=== PATIENT | male | born 1995 | race African-American/Black ===

== ENCOUNTER 2016-04-26 07:34 | Emergency (ER) | payer BC, MEDICAID ==
--- NOTE | 2016-04-26 08:49 | ER Document Report ---
ED Head/Face/Scalp Injury - General Chief Complaint: Fall Stated Complaint: FALL,HEAD PAIN Time seen by provider: 08:44 Mode of Arrival: Ambulatory Information source: Patient Notes: 21-year-old male presents to ED status post fall. He states he fell in the bathroom he was half asleep going to the bathroom. He has pain to the back of his head. He has a small laceration to the scalp. Denies nausea or vomiting. TRAVEL OUTSIDE OF THE [place] IN LAST 30 DAYS: No - HPI Patient complains to provider of: Injury, Laceration, Pain Injury to: Head Location of problem: Head Occurred: This morning Where: Home Timing: Still present Context: Fell, Laceration Loss consciousness: No loss of consciousness Remembers: Injury, Coming to hospital - Related Data Allergies/Adverse Reactions: No Known Allergies Allergy (Verified 04/26/16 07:36) Home Medications: Current Home Medications No Home Medications 04/26/16 [History] Past Medical History - General Information source: Patient - Social History Smoking Status: Never Smoker Cigarette use (# per day): No Chew tobacco use (# tins/day): No Smoking Education Provided: No Frequency of alcohol use: None Drug Abuse: None Occupation: [employer] Lives with: Grandparent(s) Family History: Arthritis, DM, Hyperlipidemia, Hypertension Patient has suicidal ideation: No Patient has homicidal ideation: No - Past Medical History Cardiac Medical History: Reports: None Pulmonary Medical History: Reports: None EENT Medical History: Reports: None Neurological Medical History: Reports: None Endocrine Medical History: Reports: None Renal/ Medical History: Reports: None Malignancy Medical History: Reports None GI Medical History: Reports: None Musculoskeltal Medical History: Reports None Skin Medical History: Reports None Psychiatric Medical History: Reports: None Traumatic Medical History: Reports: None Infectious Medical History: Reports: None Surgical Hx: Negative - Immunizations Immunizations up to date: Yes Hx Diphtheria, Pertussis, Tetanus Vaccination: Yes Review of Systems - Review of Systems Constitutional: No symptoms reported EENT: No symptoms reported Cardiovascular: No symptoms reported Respiratory: No symptoms reported Gastrointestinal: No symptoms reported Genitourinary: No symptoms reported Male Genitourinary: No symptoms reported Musculoskeletal: No symptoms reported Skin: Other - Posterior scalp laceration Hematologic/Lymphatic: No symptoms reported Neurological/Psychological: No symptoms reported -: Yes All other systems reviewed and negative Physical Exam - Vital signs Vitals: Temp Pulse Resp BP Pulse Ox 97.7 F 96 17 149/73 H 100 04/26/16 07:37 04/26/16 07:37 04/26/16 07:37 04/26/16 07:37 04/26/16 07:37 Interpretation: Normal - General General appearance: Appears well, Alert - HEENT Head: Normocephalic, Atraumatic Eyes: Normal Pupils: PERRL Ears: Normal External canal: Normal Tympanic membrane: Normal Sinus: Normal Nasal: Normal Mouth/Lips: Normal Pharynx: Normal Neck: Normal - Respiratory Respiratory status: No respiratory distress Chest status: Nontender Breath sounds: Normal Chest palpation: Normal - Cardiovascular Rhythm: Regular Heart sounds: Normal auscultation Murmur: No - Abdominal Inspection: Normal Distension: No distension Bowel sounds: Normal Tenderness: Nontender Organomegaly: No organomegaly - Back Back: Normal, Nontender - Extremities General upper extremity: Normal inspection, Nontender, Normal color, Normal ROM , Normal temperature General lower extremity: Normal inspection, Nontender, Normal color, Normal ROM , Normal temperature, Normal weight bearing. No: Shavon's sign - Neurological Neuro grossly intact: Yes Cognition: Normal Orientation: AAOx4 Mary Coma Scale Eye Opening: Spontaneous Mary Coma Scale Verbal: Oriented Mary Coma Scale Motor: Obeys Commands Mary Coma Scale Total: 15 Speech: Normal Motor strength normal: LUE, RUE, LLE, RLE Sensory: Normal - Psychological Associated symptoms: Normal affect, Normal mood - Skin Skin Temperature: Warm Skin Moisture: Dry Skin Color: Normal Course - Vital Signs Vital signs: Temp Pulse Resp BP Pulse Ox 97.9 F 64 20 133/67 H 98 04/26/16 09:41 04/26/16 09:41 04/26/16 09:41 04/26/16 09:41 04/26/16 09:41 Procedures - Laceration/Wound Repair Posterior Time completed: 09:29 Wound length (cm): 3 Wound's Depth, Shape: Into muscle Laceration pre-procedure: Sterile PPE donned, Sterile drapes applied, Other - surgical scub Anesthetic type: Other - none Volume Anesthetic (mLs): 0 Irrigated w/ Saline (mLs): 150 Wound Repaired With: Ilia Suture Size/Type: Other - ilia Number of Sutures: 4 - ilia Layer Closure?: No Post-procedure wound care: Other - scalp Complications: No Discharge - Discharge Clinical Impression: Laceration of scalp Qualifiers: Encounter type: initial encounter Qualified Code(s): S01.01XA - Laceration without foreign body of scalp, initial encounter Condition: Stable Disposition: HOME, SELF-CARE Instructions: Care of Stapled Wounds ([facility]), Family Physicians / Practices Additional Instructions: Scalp Laceration A scalp laceration requires little care. Dressings are applied only if severe bleeding or a large flap are present. Usually, once the cut is sutured, you can ignore it. Simply comb the hair over top of it to hide the stitches and go about your usual routine. You can shampoo your hair as needed starting tomorrow. If you need to wear a special hat or protective helmet for work, be careful that it doesn't press on the area. If crusting is bothersome, you can soften the crusts with Polysporin ointment, then shampoo. Infection in a scalp laceration is rare. If any signs of infection occur ( swelling, redness, increasing tenderness, red streaks, tender lumps in the neck on the side of the laceration, or fever), see the doctor immediately. SOAP CLEANSING: Gently wash the wound daily using a mild soap (like Ivory, Phisoderm, Neutrogena). Use warm water, rubbing gently until all debris, ooze, and crusting have been washed from the wound. Allow to dry briefly (about 10 minutes) after cleaning. Repeat this cleansing at least three times a day for the first two days and then once or twice a day. FOLLOW-UP CARE: Please return in __5___ days for an infection check and dressing change. Your sutures should be removed in __5___ days. To facilitate a timely removal of your sutures, you may return to the Emergency Department at [facility]. You do not need to call for an appointment, but the best time to come in for suture removal is early in the morning. If you have been referred to another physician for follow-up care, call that physicians office for an appointment as you were instructed. If you experience a significant change in your laceration, or if you are concerned there may be an infection (swelling, redness, drainage, increasing tenderness, red streaks, tender lumps in the armpit or groin above the laceration, or fever) , return to the Emergency Department immediately re-evaluation. Please complete the patient's satisfaction survey if you get one and return. If you do not receive a survey you can go to [facility] [email or web address] and placed her comments about your very good care. Thank you very much. It was a pleasure be in your medical provider today. Forms: Elevated Blood Pressure, Return to Work
[2016-04-26 09:44] VITALS: BP 133/67
== END 2016-04-26 09:44 | disposition home or self-care (01) ==
LOC: ER 07:34
PROC: 0HQ0XZZ Repair Scalp Skin, External Approach (ICD-10-PCS; principal; 2016-04-26)
DX: S01.01XA Laceration without foreign body of scalp, initial encounter (principal); R51 Headache; W19.XXXA Unspecified fall, initial encounter
CPT/HCPCS: 99283